=== PATIENT | male | born 1955 ===

== ENCOUNTER 2024-02-09 10:11 | Outpatient (REF) | payer OTHER, SELFPAY | END 2024-02-09 10:12 | disposition home or self-care (01) | LOC: HO.SH 10:11 | PROVIDERS: PCP Internal Medicine; Visit Provider Physician Assistant | DX: Z01.118 Encounter for examination of ears and hearing with other abnormal findings (principal); H90.3 Sensorineural hearing loss, bilateral | CPT/HCPCS: 92557 ==